=== PATIENT | male | born 1965 ===

== ENCOUNTER 2025-01-17 06:07 | Outpatient (CLI) | payer BC ==
[~2025-01-17 06:07] MED LIST: NORVASC10 MG PO; ROSUVASTATIN CA20 MG PO; TOPROL XL25 M1 PO; WARFARIN SODIUM3 MG PO
[2025-01-17 07:36] LABS: INR 1.15; PARTIAL THROMBOPLASTIN TIME 31.6 SECONDS (22.0-34.0); PROTHROMBIN TIME 12.4 SECONDS (9.0-11.5)
== END 2025-01-17 06:10 | disposition home or self-care (01) ==
LOC: LAB 06:07
PROVIDERS: ATTEND Internal Medicine
DX: I35.9 Nonrheumatic aortic valve disorder, unspecified (principal)

== ENCOUNTER 2025-01-17 06:22 | Day surgery (SDC) | payer BC ==
[2025-01-13 10:58] LABS: URINE APPEARANCE Clear; URINE BILIRRUBIN Negative (NEGATIVE); URINE BLOOD Small; URINE COLOR Yellow; URINE GLUCOSE Negative (NEGATIVE); URINE KETONE 15 (NEGATIVE); URINE LEUKOCYTE Negative; URINE NITRATE Negative; URINE PROTEIN 30 (NEGATIVE); URINE UROBILINOGEN 0.2 E.U./dl
[2025-01-13 11:02] LABS: URINE BACTERIA 8.5 uL (0.0-1933); URINE RBC 28.7 uL (0.0-20.8); URINE WBC 3.4 uL (0.0-23.2)
[2025-01-13 11:05] LABS: URINE EPITHELIAL CELLS 0.7 uL (0.0-38.8)
[2025-01-13 11:10] LABS: HEMATOCRIT 44.4 % (39.0-48.0); HEMOGLOBIN 14.8 g/dL (13-16.00); MEAN CORPUSCULAR HEMOGLOBIN 29.8 pg (27.00-32.0); MEAN CORPUSCULAR HGB CONC 33.4 g/dl (32.0-36.0); PLATELET COUNT 228 K/uL (150-450); RED BLOOD COUNT 4.98 M/uL (4.00-6.00)
[2025-01-13 11:52] VITALS: BP 143/85
[2025-01-13 11:58] LABS: INR 2.65
[2025-01-13 12:01] LABS: PARTIAL THROMBOPLASTIN TIME 43.9 SECONDS (22.0-34.0); PROTHROMBIN TIME 26.9 SECONDS (9.0-11.5)
[2025-01-13 12:02] LABS: ALBUMIN 4.6 gm/dL (3.4-5.0); BILIRUBIN TOTAL 0.61 mg/dL (0.3-1.2); CALCIUM 9.5 mg/dL (8.5-10.1); CREATININE SERUM 0.74 mg/dL (0.70-1.30); GFR 107.53; GLOBULINA 3.8 G/DL (2.4-3.5); POTASSIUM 3.82 mEq/L (3.5-5.1); TOTAL PROTEIN 8.4 gm/dL (6.4-8.2)
[~2025-01-17] VITALS: Ht 182.9 cm; Wt 74.8 kg
[2025-01-17] MEDS ORDERED: CEFAZOLIN SODIUM 1,000 MG VIAL ONE (12:23)
[2025-01-17] MEDS ORDERED: SUGAMMADEX SODIUM 200 MG/2 ML VIAL IV ONE (15:05)
[2025-01-17] MEDS ORDERED: MORPHINE SULFATE 4 MG/ML VIAL IV ONE ×2 (16:00→16:30)
== END 2025-01-17 18:40 | disposition home or self-care (01) ==
LOC: CIR.AMB 06:22
PROVIDERS: ATTEND Surgery
DX: K40.21 Bilateral inguinal hernia, without obstruction or gangrene, recurrent (principal)